=== PATIENT | female | born 1960 | race Caucasian/White ===

== ENCOUNTER 2017-04-03 09:26 | Observation (INO) | payer OTHER ==
[~2017-04-03] VITALS: Ht 157.5 cm; Wt 70.8 kg
[~2017-04-03 09:26] MED LIST: FERROUS SULFAT324 MG PO; MULTI-VITAMIN1 EACH PO; PRILOSEC OTC20 MG PO
[2017-04-03 10:45] LABS: BASOPHILS # (AUTO) 0.1 (0.0-0.1); BASOPHILS % 1.1 % (0.0-1.0); EOSINOPHILS # (AUTO) 0.1 (0.0-0.4); EOSINOPHILS % 1.1 % (0.0-6.0); HEMATOCRIT 41.7 % (34.2-44.1); HEMOGLOBIN 13.5 g/dL (12.0-16.0); LYMPHOCYTES # (AUTO) 2.4 (1.0-3.2); LYMPHOCYTES % 33.8 % (18.0-39.1); MEAN CORPUSCULAR HEMOGLOBIN 29.7 pg (28-32); MEAN CORPUSCULAR HGB CONC 32.4 g/dL (31-35); MEAN CORPUSCULAR VOLUME 91.6 fL (81-99); MONOCYTES # (AUTO) 0.5 (0.2-0.8); MONOCYTES % 7.6 % (4.4-11.3); NEUTROPHILS # (AUTO) 3.9 (2.1-6.9); NEUTROPHILS % 56.3 % (38.7-80.0); PLATELET COUNT 269 x10e3/uL (140-360); RED BLOOD COUNT 4.55 x10e6/uL (3.6-5.1)
[2017-04-03 11:08] LABS: ANION GAP 9.9 mmol/L (8-16); BLOOD UREA NITROGEN 13 mg/dL (7-26); BUN/CREATININE RATIO 17 (6-25); CARBON DIOXIDE 29 mmol/L (22-29); CHLORIDE 108 mmol/L (98-107); CREATININE, SERUM 0.76 mg/dL (0.57-1.11); EST GLOMERULAR FILTRATION RATE > 60 ML/MIN (60-); GLUCOSE 96 mg/dL (74-118); POTASSIUM 3.9 mmol/L (3.5-5.1); SODIUM 143 mmol/L (136-145)
[2017-04-03] MEDS ORDERED: BUPIVACAINE 0.25%/EPI 30ML SDV INJ ONE (12:35)
[2017-04-03] MEDS ORDERED: HYDROCODONE/APAP 7.5MG-325MG 1 EA TAB PO PRN (16:45)
[2017-04-03] MEDS ORDERED: HYDROMORPHONE 1MG/1ML INJ IV PRN (16:45)
[2017-04-03] MEDS ORDERED: HYDROMORPHONE 2MG/ML INJ ONE (16:54)
[2017-04-03] MEDS ORDERED: LIDOCAINE HCL 2% LOCAL INJ 5 ML SDV VIAL INJ ONE (18:14)
[2017-04-03] MEDS ORDERED: ROCURONIUM BROMIDE 10 MG/ML 5ML VIAL ONE (18:14)
[2017-04-03] MEDS ORDERED: SEVOFLURANE INHAL SOLN 250 ML PEN BTL ONE (18:14)
[2017-04-03] MEDS ORDERED: PROPOFOL IV EMULSION 10 MG/ML 20 ML VIAL ONE (18:14)
[2017-04-03] MEDS ORDERED: DEXAMETHASONE SOD PHOS INJ 4 MG/ML VIAL ONE (18:14)
[2017-04-03] MEDS ORDERED: KETOROLAC TROMETHAMINE 30 MG/ML VIAL ONE (18:14)
[2017-04-03] MEDS ORDERED: ACETAMINOPHEN 1000 MG/100 ML IV ONE (18:14)
[2017-04-03] MEDS ORDERED: ONDANSETRON HCL INJ 2 MG/ML VIAL ONE (18:14)
[2017-04-03] MEDS ORDERED: CEFAZOLIN SOD 1 GM VIAL ONE (18:14)
[2017-04-03 18:28] VITALS: BP 153/81
[2017-04-03 18:37] VITALS: BP 153/81
[2017-04-03] MEDS: DEXTROSE 5%/LACTATED RINGERS 1,000 ML IV SCH (18:37)
[2017-04-03 18:38] VITALS: BP 153/81
[2017-04-03] MEDS ORDERED: MIDAZOLAM HCL 2 MG/2 ML VIAL ONE (18:57)
[2017-04-03] MEDS ORDERED: FENTANYL CITRATE/PF 100MCG/2 ML INJ ONE (18:57)
[2017-04-03 20:00] VITALS: BP 122/62
[2017-04-03] MEDS: KETOROLAC TROMETHAMINE 30 MG/ML VIAL IV PRN (21:07)
[2017-04-03] MEDS ORDERED: DIPHENHYDRAMINE HCL INJ 50 MG/ML VIAL IV PRN (21:15)
[2017-04-03] MEDS: PANTOPRAZOLE 40 MG 10ML VIAL IV SCH (21:21)
[2017-04-03] MEDS: CEFAZOLIN SOD 1 GM VIAL IV SCH (21:50)
[2017-04-03] MEDS ORDERED: CEFAZOLIN SOD 1 GM/NS 50ML 50 ML IV SCH (22:00)
[2017-04-03] MEDS: ONDANSETRON HCL INJ 2 MG/ML VIAL IV PRN (22:15)
[2017-04-03] MEDS: ACETAMINOPHEN 1000 MG/100 ML IV PRN (22:25)
[2017-04-04] VITALS: BP 94/56
[2017-04-04] MEDS: DEXTROSE 5%/LACTATED RINGERS 1,000 ML IV SCH ×2 (02:45→12:34)
[2017-04-04] MEDS: KETOROLAC TROMETHAMINE 30 MG/ML VIAL IV PRN (02:50)
[2017-04-04 04:00] VITALS: BP 100/56
[2017-04-04] MEDS: ACETAMINOPHEN 1000 MG/100 ML IV PRN (04:46)
[2017-04-04] MEDS: CEFAZOLIN SOD 1 GM VIAL IV SCH ×2 (06:26→13:01)
[2017-04-04 06:58] LABS: BASOPHILS % 0.2 % (0.0-1.0); EOSINOPHILS % 0.2 % (0.0-6.0); HEMATOCRIT 31.4 % (34.2-44.1); HEMOGLOBIN 10.2 g/dL (12.0-16.0); LYMPHOCYTES # (AUTO) 1.9 (1.0-3.2); LYMPHOCYTES % 14.9 % (18.0-39.1); MEAN CORPUSCULAR HEMOGLOBIN 29.7 pg (28-32); MEAN CORPUSCULAR HGB CONC 32.5 g/dL (31-35); MEAN CORPUSCULAR VOLUME 91.5 fL (81-99); MONOCYTES # (AUTO) 0.9 (0.2-0.8); MONOCYTES % 7.2 % (4.4-11.3); NEUTROPHILS # (AUTO) 9.8 (2.1-6.9); NEUTROPHILS % 77.1 % (38.7-80.0); PLATELET COUNT 222 x10e3/uL (140-360); RED BLOOD COUNT 3.43 x10e6/uL (3.6-5.1); RED CELL DISTRIBUTION WIDTH 12.9 % (11.7-14.4)
[2017-04-04 07:30] LABS: ANION GAP 9.1 mmol/L (8-16); BLOOD UREA NITROGEN 11 mg/dL (7-26); BUN/CREATININE RATIO 15 (6-25); CALCIUM 8.6 mg/dL (8.4-10.2); CARBON DIOXIDE 27 mmol/L (22-29); CHLORIDE 105 mmol/L (98-107); CREATININE, SERUM 0.71 mg/dL (0.57-1.11); EST GLOMERULAR FILTRATION RATE > 60 ML/MIN (60-); GLUCOSE 125 mg/dL (74-118); POTASSIUM 4.1 mmol/L (3.5-5.1); SODIUM 137 mmol/L (136-145)
--- NOTE | 2017-04-04 09:56 | Operative Report ---
DATE OF PROCEDURE: April 03, 2017 PREOPERATIVE DIAGNOSIS: Ventral hernia. POSTOPERATIVE DIAGNOSIS: Ventral hernia. OPERATION PERFORMED: Repair of ventral hernia. TRAFFIC RATE ANALYST: Jacquelyn GOLD. ANESTHESIA: General. COMPLICATIONS: None. ESTIMATED BLOOD LOSS: 50 mL. DESCRIPTION OF PROCEDURE: With the patient lying in bed in the supine position under good general endotracheal anesthesia, the abdomen was prepped with Betadine solution and draped in the usual manner. A transverse incision was made over the area of the hernia, carried down through the subcutaneous tissue down to the fascia. Flaps were then developed in all directions. The hernia sac was identified and dissected with normal fascia all the way around. The excess of the fascia and the hernia sac were then reduced back to the intra-abdominal cavity, and the fascia was then closed and the hernia defect was closed primarily using interrupted sutures of 0 Ethibond. This gave us a satisfactory closure without any tension. The whole area was thoroughly irrigated. Hemostasis was ascertained. The excess of the skin was then resected, and the two 10 flat Jayme-Ballesteros drains were left in the subcutaneous tissue and brought out through separate stab wound incisions. The subcutaneous tissue was approximated with interrupted sutures of 2-0 and 3-0 Vicryl, and the skin was closed with subcuticular 4-0 Monocryl and Dermabond dressings were applied. The sponge, lap and needle count was correct. The patient tolerated the procedure well and returned to the recovery room in stable condition. Job#: [id number] ELIANA
[2017-04-04] MEDS: ONDANSETRON HCL INJ 2 MG/ML VIAL IV PRN (10:40)
[2017-04-04] MEDS ORDERED: HYDROMORPHONE 2MG/ML INJ IV PRN (10:45)
[2017-04-04 14:02] VITALS: BP 136/68
[2017-04-04] MEDS: PANTOPRAZOLE 40 MG 10ML VIAL IV SCH (15:47)
== END 2017-04-04 17:17 | disposition home or self-care (01) ==
LOC: OR 09:26 → MED/SURG 17:46
PROVIDERS: ADMIT Surgery; ATTEND Surgery
DX: K43.9 Ventral hernia without obstruction or gangrene (principal); Z98.84 Bariatric surgery status; Z88.5 Allergy status to narcotic agent
CPT/HCPCS: 36415 ×2; 49560; 80048 ×2; 85025 ×2; 93005; G0378 ×2; J0690 ×2; J1100; J1170 ×2; J1885 ×2; J2001; J2250; J2405 ×2; J7120 ×2